=== PATIENT | female | born 1975 | race Caucasian/White ===

== ENCOUNTER 2016-12-22 20:08 | Emergency (ER) | payer MEDICAID, OTHER ==
[~2016-12-22] VITALS: Ht 165.1 cm; Wt 66.2 kg
[~2016-12-22 20:08] MED LIST: DENIES
[2016-12-22 20:27] VITALS: Ht 165.1 cm; Wt 66.2 kg
[2016-12-22] MEDS ORDERED: IBUPROFEN 200 MG TAB PO ONE (22:00)
--- NOTE | 2016-12-22 23:05 | RADRPT ---
PROCEDURE: XR Knee. CLINICAL INDICATION: Post traumatic left knee pain after a fall TECHNIQUE: AP, lateral and oblique views of the right knee were obtained. COMPARISON: None. FINDINGS: No fracture or osseous lesion is identified. There is no evidence for dislocation. Mineralization is within normal limits. Joint spaces are preserved. No evidence of effusion or soft tissue swelli ng is identified. RPTAT:HJJR IMPRESSION: Unremarkable left knee series. Physician Cristina Date Time Electronically viewed and signed by Stone Garcia Physician on 12/22/2016 23:05 JR/
--- NOTE | 2016-12-22 23:34 | ERD ---
ER Documentation Chief Complaint Date/Time DATE: 12/22/16 TIME: 23:33 Chief Complaint left knee pain x 8days s/p fall +CMS, ambulatory HPI This 41-year-old female presents with knee pain status post trip and fall 2010 days ago. Patient has visible ecchymosis and tender bony prominence of knee. Patient is fearful she has fractured knee. Patient is able to ambulate, pain only to palpation. Has treated self with topical analgesic rubs and Ochoa wrap. ROS All systems reviewed and are negative except as per history of present illness. Medications Home Meds Active Scripts Ibuprofen* (Motrin*) 400 Mg Tab, 400 MG PO Q6, #30 TAB Prov:DARIEL BROWN 12/23/16 Reported Medications [Denies] No Conflict Check 09/18/10 Allergies Allergies: Coded Allergies: No Known Allergies (Verified Allergy, Mild, 09/18/10) PMhx/Soc Medical and Surgical Hx: pt denies Medical Hx History of Surgery: Yes () Anesthesia Reaction: No Hx Neurological Disorder: No Hx Respiratory Disorders: No Hx Cardiac Disorders: No Hx Psychiatric Problems: No Hx Miscellaneous Medical Probl: No Hx Alcohol Use: No Hx Substance Use: No Hx Tobacco Use: No Smoking Status: Never smoker Physical Exam Vitals Vitals stable, triage notes are Physical Exam Const: Well-nourished, well-hydrated, afebrile, no acute distress Head: Atraumatic Eyes: Normal Conjunctiva, PERRLA, EOMI ENT: Neck: Resp: Respirations even and unlabored, no respiratory distress Cardio: Abd: Skin: No petechiae or rashes Back: Ext: Lower Extremity -left knee Skin: No laceration are obvious bone deformity Compartments: Soft Motor: Full active range of motion hip/knee/ankle/foot, full extension and flexion Sensation: Intact to light touch all surfaces. Bones: Nontender pelvis/knee/proximal tibia/ malleoli/foot, no patellar tenderness, no posterior knee tenderness, negative anterior drawer test Joints: No effusion or laxity Pulses/Perfusion: [2+ DP, Capillary refill < 2 seconds] Neur: Awake and alert Psych: Normal Mood and Affect Results 24 hrs Current Medications Medications (Trade) Dose Ordered Sig/Martha Route PRN Reason Start Time Stop Time Status Last Admin Dose Admin Ibuprofen (Motrin) 400 mg ONCE ONCE PO 12/22/16 22:00 12/22/16 22:01 DC 12/22/16 22:17 Procedures/MDM PROCEDURE: XR Knee. CLINICAL INDICATION: Post traumatic left knee pain after a fall TECHNIQUE: AP, lateral and oblique views of the right knee were obtained. COMPARISON: None. FINDINGS: No fracture or osseous lesion is identified. There is no evidence for dislocation. Mineralization is within normal limits. Joint spaces are preserved. No evidence of effusion or soft tissue swelling is identified. RPTAT:HJJR IMPRESSION: Unremarkable left knee series. Electronically viewed and signed by Stone Garcia Physician on 12/22/2016 23:05 This pleasant 41-year-old female presents to emergency department with left knee pain status post mechanical trip and fall a week ago patient concerns about knee anatomy, patient is fearful that she has done something to her bones states that her knee looks different than her right knee. There is no obvious deformity. Nurse practitioner agrees to order x-ray, with documentation of unremarkable knee series. Patient diagnosed with knee contusion placed in Ochoa wrap, sent home with ibuprofen. Return to emergency department for change in range of motion or mobility. I feel the patient is stable for discharge at this time with outpatient management by primary care physician. I have discussed results, examination findings, the treatment plan with the patient and family present prior to discharge. Indications for emergent reevaluation, side effects of medication were also discussed. All questions were answered. Patient verbalizes understanding and agrees with plan of care. Departure Diagnosis: Primary Impression: Contusion, knee and lower leg Encounter type: initial encounter Laterality: left Qualified Code: S80.02XA - Contusion, knee and lower leg, left, initial encounter Condition: Good Patient Instructions: Contusion, Lower Extremity Additional Instructions: Thank you for for coming to [facility] for your care today. Please ask your nurse or provider if you have questions about your care today and do not leave until all your questions have been answered. Please use any medications given as directed and follow-up with your doctor (or the doctor you were referred to) in the next 2-3 days. If you do not have a primary care doctor you may follow up at the [facility] (listed below). You may also use motrin and tylenol as needed for fever and/or pain unless instructed otherwise by your provider or nurse. Indications for more urgent follow-up have been discussed, but you may return to the Emergency Department at ANY time for any worrisome or worsening symptoms. If you have abdominal pain, please know that no test or exam you received is perfect and you should follow up within 8 hours for continued pain. If you had any imaging studies today, such as an X-Ray or CT Scan, these studies will be reviewed later by a radiologist. You will be called if there are important findings that were not identified today, so make sure the contact information you provided at registration is correct. If you received any narcotic pain control medicine today, such as Vicodin, Morphine or Dilaudid, your coordination and judgment may be affected for a number of hours. Please do not drive or operate heavy machinery, and you may want someone to assist you at home. If you were given a prescription for narcotic medication, be aware that it is very addictive- use sparingly and only if necessary. DARIEL BROWN Dec 22, 2016 23:34
[2016-12-23] MEDS ORDERED: IBUP400T22 PO (00:28)
== END 2016-12-23 00:38 | disposition left against medical advice (07) ==
LOC: FTE 20:08
DX: S80.02XA Contusion of left knee, initial encounter (principal); W01.0XXA Fall on same level from slipping, tripping and stumbling without subsequent striking against object, initial encounter; Y92.9 Unspecified place or not applicable
CPT/HCPCS: 73562; Z7610